=== PATIENT | female | born 1990 | race Caucasian/White ===

== ENCOUNTER 2020-08-23 16:27 | Emergency (ER) | payer BC ==
[2020-08-23] MEDS ORDERED: Ibuprofen 600 MG Tab PO ONE (17:44)
--- NOTE | 2020-08-23 17:50 | EDM.PDOC ---
ED HPI GENERAL MEDICAL PROBLEM - General Chief Complaint: Abdominal Pain Stated Complaint: SEVERE ABDOMINAL PAIN AFTER GOING ON SLIP AND SLID Time Seen by Provider: 08/23/20 17:22 Source of Information: Reports: Patient History Limitations: Reports: No Limitations - History of Present Illness INITIAL COMMENTS - FREE TEXT/NARRATIVE: 29 yo female presents to the ER after hurting ABD while sliding on a slip and slide. She dove on her belly and felt pain in her lower ABD. She was able to stand after incident but felt sever pain and nausea. the nausea resolved after 15 minutes. She continues to pain across her lower ABD. Generally healthy. Lives in [place]. Abdominal Pain Score (Numeric/FACES): 7 - Related Data Allergies Allergy/AdvReac Type Severity Reaction Status Date / Time No Known Allergies Allergy Verified 08/23/20 17:12 Past Medical History - Past Health History Medical/Surgical History: Denies Medical/Surgical History Social & Family History - Tobacco Use Tobacco Use Status *Q: Never Tobacco User - Caffeine Use Caffeine Use: Reports: Coffee - Recreational Drug Use Recreational Drug Use: No ED ROS GENERAL - Review of Systems Review Of Systems: See Below Constitutional: Denies: Fever, Chills Respiratory: Denies: Shortness of Breath, Wheezing Cardiovascular: Denies: Chest Pain ED EXAM, GI/ABD - Physical Exam Exam: See Below Exam Limited By: No Limitations General Appearance: Alert, WD/WN, No Apparent Distress Head: Atraumatic, Normocephalic Respiratory/Chest: No Respiratory Distress, Lungs Clear, Normal Breath Sounds. No: Crackles, Rhonchi, Wheezing Cardiovascular: Regular Rate, Rhythm GI/Abdominal Exam: Normal Bowel Sounds, Soft, Tender (lower ABD generalized. no hernia present). No: Guarding, Rigid Course - Vital Signs Last Recorded V/S: Last Vital Signs Temp 36.6 C 08/23/20 17:12 Pulse 79 08/23/20 17:12 Resp 16 08/23/20 17:12 BP 123/87 08/23/20 17:12 Pulse Ox 99 08/23/20 17:12 - Orders/Labs/Meds Labs: Laboratory Tests 08/23/20 Range/Units 18:21 Urine Color Yellow (YELLOW) Urine Appearance Cloudy A (CLEAR) Urine pH 6.0 (5.0-8.0) Ur Specific [place] >= 1.030 (1.008-1.030) Urine Protein Negative (NEGATIVE) mg/dL Urine Glucose (UA) Negative (NEGATIVE) mg/dL Urine Ketones 15 H (NEGATIVE) mg/dL Urine Occult Blood Trace-intact H (NEGATIVE) Urine Nitrite Positive H (NEGATIVE) Urine Bilirubin Negative (NEGATIVE) Urine Urobilinogen 0.2 (0.2-1.0) EU/dL Ur Leukocyte Esterase Negative (NEGATIVE) Urine RBC 0-5 (0-5) Urine WBC 5-10 H (0-5) Ur Epithelial Cells Rare Amorphous Sediment Not seen Urine Bacteria Many Urine Mucus Not seen Meds: Medications Discontinued Medications Generic Name Dose Route Start Last Admin Trade Name Freq PRN Reason Stop Dose Admin Ibuprofen 600 mg 08/23/20 17:44 08/23/20 17:59 Ibuprofen 600 Mg Tab PO 08/23/20 17:45 600 mg ONETIME ONE Administration Departure - Departure Time of Disposition: 18:38 Disposition: Home, Self-Care 01 Condition: Good Clinical Impression: Acute cystitis Qualifiers: Hematuria presence: without hematuria Qualified Code(s): N30.00 - Acute cystitis without hematuria Abdominal muscle strain Qualifiers: Encounter type: initial encounter Qualified Code(s): S39.011A - Strain of muscle, fascia and tendon of abdomen, initial encounter - Discharge Information *PRESCRIPTION DRUG MONITORING PROGRAM REVIEWED*: Not Applicable *COPY OF PRESCRIPTION DRUG MONITORING REPORT IN PATIENT TOSHA: Not Applicable Instructions: Abdominal Pain, Adult, [id number] Referrals: PCP,None [Primary Care Provider] - Forms: ED Department Discharge Additional Instructions: macrobid 100 mg twice daily for 7 days increase fluid intake with goal of 1 liter per day ice to lower abdomen over the next 72 hours, continue to be active. Sepsis Event Note (ED) - Evaluation Sepsis Screening Result: No Definite Risk - Focused Exam Vital Signs: Vital Signs Temp Pulse Resp BP Pulse Ox 08/23/20 17:12 36.6 C 79 16 123/87 99 08/23/20 16:51 36.6 C 79 16 123/87 99
== END 2020-08-23 19:02 | disposition home or self-care (01) ==
LOC: JP.ED 16:27
DX: S39.011A Strain of muscle, fascia and tendon of abdomen, initial encounter (principal); N30.00 Acute cystitis without hematuria; W18.40XA Slipping, tripping and stumbling without falling, unspecified, initial encounter
CPT/HCPCS: 81001; 99283; A9270